=== PATIENT | female | born 1950 | race Caucasian/White ===

== ENCOUNTER 2018-10-15 19:30 | Outpatient (CLI) | payer MEDICARE | END 2018-10-15 19:31 | disposition home or self-care (01) | LOC: SLEEPLAB 19:30 | PROVIDERS: ATTEND Internal Medicine Critical Care Medicine | DX: G47.33 Obstructive sleep apnea (adult) (pediatric) (principal); R53.83 Other fatigue; R09.89 Other specified symptoms and signs involving the circulatory and respiratory systems; G47.10 Hypersomnia, unspecified; R06.83 Snoring; I10 Essential (primary) hypertension; G47.00 Insomnia, unspecified; E11.9 Type 2 diabetes mellitus without complications; F32.9 Major depressive disorder, single episode, unspecified; E66.9 Obesity, unspecified; Z68.41 Body mass index [BMI] 40.0-44.9, adult | CPT/HCPCS: 95810 ==

== ENCOUNTER 2018-10-22 19:30 | Outpatient (CLI) | payer MEDICARE | END 2018-10-22 19:31 | disposition home or self-care (01) | LOC: SLEEPLAB 19:30 | PROVIDERS: ATTEND Internal Medicine Critical Care Medicine | DX: G47.33 Obstructive sleep apnea (adult) (pediatric) (principal); R53.83 Other fatigue; G47.61 Periodic limb movement disorder; E66.9 Obesity, unspecified; Z68.41 Body mass index [BMI] 40.0-44.9, adult | CPT/HCPCS: 95811 ==

== ENCOUNTER 2019-02-17 13:58 | Outpatient (CLI) | payer MEDICARE ==
--- NOTE | 2019-02-17 15:48 | BD ---
Exam: DEXA Bone Density 01/17/19 HISTORY: Postmenopausal screening. COMPARISON: 04/11/16. Lumbar Spine: BMD (g/cm2) T-SCORE L1 1.011 +0.2 L2 0.923 -1.0 L3 0.973 -1.0 L4 0.871 -1.7 L1-L4 0.940 -1.0 Within normal limits with no increased risk for fracture. Bone mineral density is slightly improved from the prior study at which time T-Score was -1.3. Left Femoral Neck: 0.710 -1.2 Total Femur: 1.062 +1.0 Evidence for osteopenia with increased risk for fracture. Femoral neck bone density has slightly decreased when compared to the prior study, prior T-Score of t he femoral neck was -1.0. FRAX Score: Major osteoporotic fracture of 13%. Hip fracture: 1.4%. POS: [facility]
--- NOTE | 2019-02-18 08:40 | MMO ---
Bilateral MAMMO Bilat Screen [facility]. CLINICAL HISTORY: Patient is 68 years old and is seen for screening. The patient has no family history of breast cancer. The patient has no personal history of cancer. VIEWS: The views performed were: bilateral craniocaudal with tomosynthesis and bilateral mediolateral oblique with tomosynthesis. FILMS COMPARED: The present examination has been compared to prior imaging studies performed at [facility] on 09/28/2013, 04/11/2016 and 01/12/2018. MAMMOGRAM FINDINGS: There are scattered fibroglandular densities. There are stable benign appearing calcifications seen in both breasts. There are no suspicious masses, suspicious calcifications, or new areas of architectural distortion. IMPRESSION: THERE IS NO MAMMOGRAPHIC EVIDENCE OF MALIGNANCY. A ROUTINE FOLLOW-UP MAMMOGRAM IN 1 YEAR IS RECOMMENDED. THE RESULTS OF THIS EXAM WERE SENT TO THE PATIENT. ACR BI-RADS Category 2 - Benign finding MAMMOGRAPHY NOTE: 1. A negative mammogram report should not delay a biopsy if a dominant of clinically suspicious mass is present. 2. Approximately 10% to 15% of breast cancers are not detected by mammography. 3. Adenosis and dense breasts may obscure an underlying neoplasm.
== END 2019-02-17 13:59 | disposition home or self-care (01) ==
LOC: BICMAMMO 13:58
PROVIDERS: ATTEND Internal Medicine
DX: Z12.31 Encounter for screening mammogram for malignant neoplasm of breast (principal); Z13.820 Encounter for screening for osteoporosis; Z78.0 Asymptomatic menopausal state; M85.89 Other specified disorders of bone density and structure, multiple sites
CPT/HCPCS: 77063; 77067; 77080

== ENCOUNTER 2019-02-23 06:34 | Outpatient (CLI) | payer MEDICARE ==
--- NOTE | 2019-02-23 08:32 | CT ---
CT Abdomen Pelvis W Con HISTORY: Upper abdominal pain and bloating history of cholecystectomy. COMPARISON: The lung bases are clear. There are diffuse fatty changes of the liver which measures 23.9 cm in length. Spleen is enlarged at 16 cm. The pancreas region is unremarkable. The gallbladder has been removed. Right and left adrenal glands and right and left kidneys are normal in size. There is no significant periaortic adenopathy. There are some scattered nonspecific mesenteric nodes. CT of pelvis performed with contrast enhancement: The appendix is normal. There is no adenopathy, mas s or free fluid. Review of osseous structures show arthritic changes of the spine. FINDINGS: Fatty changes of liver with hepatosplenomegaly. IMPRESSION:
== END 2019-02-23 06:35 | disposition home or self-care (01) ==
LOC: BICCT 06:34
PROVIDERS: ATTEND Internal Medicine
DX: R10.10 Upper abdominal pain, unspecified (principal); R14.0 Abdominal distension (gaseous); K76.0 Fatty (change of) liver, not elsewhere classified; R16.2 Hepatomegaly with splenomegaly, not elsewhere classified
CPT/HCPCS: 74177

== ENCOUNTER 2019-03-10 10:28 | Day surgery (SDC) | payer MEDICARE ==
[2019-03-09 12:08] VITALS: BMI 42.0
[2019-03-10] MEDS ORDERED: Promethazine HCl 25 MG/ML VIAL ONE (14:21)
--- NOTE | 2019-03-10 14:54 | OP ---
DATE OF PROCEDURE: 03/10/2019 PROCEDURE PERFORMED: Esophagogastroduodenoscopy with biopsy. PREPROCEDURE DIAGNOSES: 1. Epigastric pain. 2. Possible upper GI bleed. 3. Early satiety. POSTPROCEDURE DIAGNOSES: 1. Exam to second portion of duodenum. 2. Grade A/B distal esophagitis, biopsied. 3. Multiple proximal body and fundus polyps, biopsied. 4. 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 5. No duodenal or gastric ulcer seen. 6. Otherwise normal esophagogastroduodenoscopy. PROCEDURE IN DETAIL: Written informed consent was obtained. The patient was brought to the endoscopy suite. Total intravenous anesthesia was administered by Dr. Marie and associates. The patient was placed in the left lateral decubitus position. A bite block was inserted into the mouth. A Pentax video diagnostic gastroscope was introduced into the oral cavity and the esophagus was carefully intubated. The endoscope was advanced under direct visualization to the second portion of the duodenum. Due to coughing and desaturation during the procedure, it was decided by Anesthesia to intubate the patient to maintain airway protection. This was performed by Dr. Marie, and the upper endoscopy examination was then resumed. Endoscopic findings showed small chronic erosions at the distal esophagus consistent with a grade A/B distal esophagitis. Biopsies were obtained for histology. There was no evidence of esophageal ulcer. The stomach was entered and carefully examined. This included a retroflex view of the cardia and fundus. Several small sessile polyps ranging in size from 3-mm to 8-mm were identified in the fundus and body. There was an estimated 15 to 20 polyps. Two of these polyps were removed and submitted to Pathology. No gastric ulcers were seen. The duodenum from the bulb to the second portion was then inspected. Several of the small sessile polypoid type lesions were noted in the proximal duodenal bulb. They were also biopsied. 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 The remainder of the exam of duodenum appeared normal. The stomach was decompressed as the endoscope was removed from the patient. She was then repositioned for the colonoscopy. RECOMMENDATIONS: 1. Await biopsy results. 2. Ask the patient to call me in 1 week for biopsy results. 3. Continue pantoprazole 40 mg daily as she has obtained some relief of her epigastric pain on the PPI therapy. 4. Follow up in GI office in 4 to 6 weeks. Job ID: [id number]
--- NOTE | 2019-03-10 15:11 | OP ---
DATE OF PROCEDURE: 03/10/2019 TITLE OF PROCEDURES: Colonoscopy with biopsy and polypectomy. PREPROCEDURE DIAGNOSES: 1. New onset diarrhea. 2. Diffuse abdominal pain. 3. Colon cancer screening. POSTPROCEDURE DIAGNOSES: 1. Exam to distal terminal ileum; good bowel preparation. 2. Mild diffuse diverticulosis coli. 3. Two small sigmoid polyps measuring 5 mm and 7 mm in diameter, removed by cold snare technique. 4. Two distal transverse colon polyps measuring 2 mm and 4 mm in diameter, removed by cold snare polypectomy. 5. Small internal hemorrhoids. 6. No obvious colitis, random biopsies obtained in the transverse colon for histology. 7. Otherwise normal colonoscopy. ANESTHESIA: General anesthesia as per Dr. Marie. PROCEDURE IN DETAIL: Written informed consent was obtained. Upon completion of the EGD, the patient was repositioned for the colonoscopy. A digital rectal exam was performed that was unremarkable. A Pentax videocolonoscope was inserted through the anal canal and advanced under direct visualization to the cecum. Position in the cecum was verified by identification of the ileocecal valve and a brief inspection of the distal terminal ileum. The quality of the bowel preparation was good. Each colon segment was examined carefully as the colonoscope was slowly withdrawn from the cecum. Vascular pattern and haustral folds appeared normal. The mucosa of the distal terminal ileum appeared grossly normal. Scattered diverticular orifices were noted throughout the colon, all the way to the cecum. There was no evidence of diverticulitis or diverticular hemorrhage. The severity of the diverticulosis was mild. The colonic mucosa appeared grossly normal. There was no evidence of ulceration or friability. Random biopsies were obtained in the transverse colon for histology. In the distal transverse colon, two diminutive polyps measuring 2 mm and 4 mm respectively were identified and removed by cold snare technique. Each polyp was submitted to pathology. Two additional polyps were found in the sigmoid colon and removed by cold snare polypectomy. They measured 5 mm and 7 mm respectively. A retroflex exam in the rectum demonstrated small internal hemorrhoids that were not actively bleeding. The exam was otherwise normal. The colon was decompressed as the colonoscope was removed from the patient. She was transferred to the PACU for postprocedure monitoring. There were no immediate complications. RECOMMENDATIONS: 1. Await pathology results. 2. Ask the patient to call me in one week for pathology results. 3. Repeat colonoscopy in three years. 4. Take Imodium one to two pills p.o. b.i.d. p.r.n. diarrhea. 5. Follow up in the office in four to six weeks. Job ID: [id number]
== END 2019-03-10 16:10 | disposition home or self-care (01) ==
LOC: SDC 10:28
PROVIDERS: ATTEND Internal Medicine Gastroenterology
PROC: 0DBN8ZX Excision of Sigmoid Colon, Via Natural or Artificial Opening Endoscopic, Diagnostic (ICD-10-PCS; principal; 2019-03-10)
PROC: 0DBL8ZX Excision of Transverse Colon, Via Natural or Artificial Opening Endoscopic, Diagnostic (ICD-10-PCS; 2019-03-10)
PROC: 0DB98ZX Excision of Duodenum, Via Natural or Artificial Opening Endoscopic, Diagnostic (ICD-10-PCS; 2019-03-10)
PROC: 0DB68ZX Excision of Stomach, Via Natural or Artificial Opening Endoscopic, Diagnostic (ICD-10-PCS; 2019-03-10)
PROC: 0DB58ZX Excision of Esophagus, Via Natural or Artificial Opening Endoscopic, Diagnostic (ICD-10-PCS; 2019-03-10)
DX: D12.5 Benign neoplasm of sigmoid colon (principal); K63.5 Polyp of colon; K57.30 Diverticulosis of large intestine without perforation or abscess without bleeding; K64.8 Other hemorrhoids; K31.7 Polyp of stomach and duodenum; K92.1 Melena; K31.89 Other diseases of stomach and duodenum; R19.7 Diarrhea, unspecified; K21.0 Gastro-esophageal reflux disease with esophagitis; E11.9 Type 2 diabetes mellitus without complications; F32.9 Major depressive disorder, single episode, unspecified; Z79.84 Long term (current) use of oral hypoglycemic drugs; Z79.899 Other long term (current) drug therapy; Z88.0 Allergy status to penicillin; Z88.2 Allergy status to sulfonamides
CPT/HCPCS: 88305; 88312; 88313; J2550

== ENCOUNTER 2019-09-24 08:03 | Observation (INO) | payer MEDICARE ==
--- NOTE | 2019-09-24 09:09 | RAD ---
EXAM: Single view of the chest HISTORY: Shortness of breath COMPARISON: None FINDINGS: Single view of the chest shows an enlarged cardiomediastinal silhouette. There is no eviden ce of consolidation, mass, or pleural effusion. Degenerative changes are seen in the spine. IMPRESSION: Cardiomegaly without evidence of acute cardiopulmonary disease
[2019-09-24 10:11] LABS: #Eosinphils 0.1 thou/uL (0.0-0.7); #Lymphocytes 0.7 thou/uL (1.20-3.40); #Monocytes 0.3 thou/uL (0.11-0.59); #Neutrophils 2.4 thou/uL (1.40-6.50); %Basophils 0.1 % (0.0-1.0); %Eosinophils 3.5 % (0.0-10.0); %Monocytes 7.8 % (0.0-10.0); %Neutrophils 69.6 % (42.0-75.0); Hemoglobin 13.1 g/dL (12.0-16.0); Mean Corpuscular HGB CONC 34.3 g/dL (32.0-36.0); Mean Corpuscular Hemoglobin 27.5 pg (27.0-31.0); Mean Corpuscular Volume 80.3 fL (78.0-98.0); RBC Distribution Width 14.4 % (11.5-14.5); Red Blood Cell (RBC) Count 4.77 mill/uL (4.20-5.40); White Blood Cell (WBC) Count 3.5 thou/uL (4.8-10.8)
[2019-09-24 10:28] LABS: ALT (SGPT) 16 U/L (8-55); AST (SGOT) 17 U/L (5-34); Alkaline Phosphatase 95 U/L (40-110); Anion Gap 13 mmol/L (10-20); BUN (Urea Nitrogen) 19 mg/dL (9.8-20.1); Bilirubin, Total 0.6 mg/dL (0.2-1.2); Calc. Creatinine Clearance 0 mL/min (70-130); Calcium 9.5 mg/dL (7.8-10.44); Carbon Dioxide 29 mmol/L (23-31); Chloride 99 mmol/L (98-107); Estimated GFR-MDRD 68; Globulin 2.6 g/dL (2.4-3.5); Glucose 272 mg/dL (80-115); Potassium 4.3 mmol/L (3.5-5.1); Protein, Total 6.6 g/dL (6.0-8.3); Sodium 137 mmol/L (136-145)
[2019-09-24 10:46] LABS: Platelet Count 87 thou/uL (130-400); Platelet Morphology Comment Appears Decreased
[2019-09-24 11:40] LABS: Bilirubin Negative (Negative); Blood, Urine Negative (Negative); Clarity Clear (Clear); Glucose, Urine (Dipstick) 200 mg/dL (Negative); Leukocyte Negative Leu/uL (Negative); Nitrite Negative (Negative); Protein, Urine (Dipstick) 10 mg/dL (Neg-Trace); Urobilinogen Normal mg/dL (Less than 2)
[2019-09-24] MEDS ORDERED: Furosemide 20 MG/2 ML VIAL ONE (12:15)
[2019-09-24 13:36] LABS: Troponin I Less than 0.010 ng/mL (< 0.028)
[2019-09-24 15:24] VITALS: BMI 44.1
[2019-09-24] MEDS ORDERED: Acetaminophen 325 MG TAB PO PRN (16:05)
[2019-09-24] MEDS ORDERED: Ondansetron ODT 4 MG TAB PO PRN (16:05)
[2019-09-24 16:08] LABS: Troponin I Less than 0.010 ng/mL (< 0.028)
[2019-09-24] MEDS ORDERED: hydrALAZINE 20 MG/ML VIAL SLOW IVP PRN (16:38)
[2019-09-24 16:45] LABS: Hemoglobin A1c 7.8 % (4.0-6.0)
[2019-09-24] MEDS: Metoprolol Tartrate 50 MG TAB PO SCH (17:54)
--- NOTE | 2019-09-24 20:42 | ULT ---
EXAM: Right lower extremity venous Doppler HISTORY: Right lower extremity swelling and pain. FINDINGS: Grayscale, color-flow, Doppler evaluation, spectral analysis of the right lower extremity venous stru ctures is performed with 2-D imaging. The right common femoral, superficial femoral, popliteal, posterior tibial, proximal greater saphenous and profunda femoral veins are imaged. There is normal luminal compressibility, flow, and augmentation in the visualized deep venous structu res of the right lower extremity. IMPRESSION: No evidence of a deep vein thrombosis in the visualized deep venous structures right lower extremity.
[2019-09-24] MEDS: Lisinopril/Hydrochlorothiazide 20 mg/12.5 mg Tablet PO SCH (21:26)
[2019-09-24] MEDS: metFORMIN 500 MG TAB PO SCH (21:27)
--- NOTE | 2019-09-24 22:17 | HP ---
CHIEF COMPLAINT: Dizziness and right lower extremity swelling. HISTORY OF PRESENT ILLNESS: A 69-year-old obese female with history of type 2 diabetes mellitus; hypertension; hyperlipidemia; oxygen dependent, respiratory failure; as well as obesity and obstructive sleep apnea, on CPAP; presenting with presyncopal episode. This morning, when she woke up, she noticed her right foot is more swollen than the left foot. She was nauseated. She had some blurriness, but no headache. She did not have fever. She felt not at her baseline which prompted her to come to the hospital. She also felt quite dizzy. She also felt that she has some presyncopal prodrome like lightheadedness, double vision, but denied any LOC. She never had any syncopal episode. She also noticed her urine is little darker. Also elevated blood pressure with systolic around 220 associated with lightheadedness. She [facility] roughly 2 weeks ago for bronchitis. REVIEW OF SYSTEMS: 13-point review of systems reviewed with the patient. Patient denies any recent fever, night sweats, chills. No headache. No chest pain. No orthopnea, PND, or lower extremity edema other than high blood pressure. No productive cough, wheezing. No nausea, vomiting, abdominal pain, constipation, diarrhea, hematuria, or dysuria. Denies any abdominal pain and flank pain. She does have inability to void frequently. Denies any rash. PAST MEDICAL HISTORY: Hypertension, type 2 diabetes mellitus. PAST SURGICAL HISTORY: Cholecystectomy and tonsillectomy. SOCIAL HISTORY: The patient does not smoke or drink alcohol. She lives with her spouse. FAMILY HISTORY: Father had glaucoma and cataract and he when he was 90-year-old. Mother had mitral valve prolapse. ALLERGIES: SHE IS ALLERGIC TO PENICILLIN. PHYSICAL EXAMINATION: VITAL SIGNS: Her current blood pressure is 182/107, pulse 86, oxygen saturation 99% on room air, temperature 98.6. GENERAL: The patient is alert, oriented, well developed, well nourished, obese female, not in any acute distress. She is very pleasant, conversational. HEENT: Pupils are equal, round, and reactive to light. Anicteric. Mucous membranes moist. CARDIOVASCULAR: Regular rate and rhythm without murmurs, rubs, or gallops. LUNGS: Clear to auscultation bilaterally without wheezing, rales, or rhonchi. ABDOMEN: Soft, nontender, nondistended. Good bowel sounds. EXTREMITIES: She has pitting edema most notable on her ankle and feet. Right is more swollen than the left. I did not appreciate any warmth, tenderness, or erythema in her right leg. PSYCHIATRIC: Appropriate mood and affect. NEUROLOGIC: No focal deficits. LABORATORY DATA: EKG showed normal sinus rhythm with a rate of 81 beats per minute. Chest x-ray showed cardiomegaly without any acute cardiopulmonary disease. No pleural effusion. No consolidation. WBC 3.5, platelets 87, hemoglobin 13. CMP panel in the normal range except blood glucose of 272. BNP 163. IMPRESSION AND PLAN: 69-year-old female with history of type 2 diabetes mellitus, hypertension, presented with the following. 1. Hypertensive urgency. 2. worsening LE edema 3. Presyncope. 4. Type 2 diabetes mellitus. 5. Glucosuria without any sign of urinary tract infection. 6. Cardiomegaly. 7. Obesity hyperventilation syndrome, on CPAP. The patient is admitted in the telemetry monitoring. Aggressive blood pressure control. We will get orthostatic vitals as well as patient felt quite dizzy this morning, which could be d/t elevated BP. Check TSH as well as 2D echo to assess the cardiac structure and functionality. Type 2 diabetes mellitus, continue with glimepiride as well as metformin. Diabetic diet. Follow up with A1c. Glucosuria. Again, patient needs better control of her diabetes. We will check A1c and try to adjust her home regimen, based on a1c. Leukopenia and thrombocytopenia. The [facility] Initial evaluation based on the small report that patient carries; it appears that she does not have any hematological malignancy. Continue to follow up with Cancer Center. Follow up with ultrasound of the right lower extremity to rule out the DVT, though it is a low threshold. it appears that the patient had LH cath in 05/2019 and negative for significant stenosis and EF of 65%--this information obtained after dictation. code status discussed -- full code, spouse DESIREE. Job ID: [id number] MTDD
[2019-09-25 05:16] LABS: #Eosinphils 0.2 thou/uL (0.0-0.7); #Lymphocytes 0.9 thou/uL (1.20-3.40); #Monocytes 0.3 thou/uL (0.11-0.59); #Neutrophils 2.7 thou/uL (1.40-6.50); %Basophils 0.1 % (0.0-1.0); %Eosinophils 4.3 % (0.0-10.0); %Lymphocytes 22.5 % (21.0-51.0); %Monocytes 6.7 % (0.0-10.0); %Neutrophils 66.5 % (42.0-75.0); Hemoglobin 13.5 g/dL (12.0-16.0); Mean Corpuscular HGB CONC 33.6 g/dL (32.0-36.0); Mean Corpuscular Hemoglobin 27.3 pg (27.0-31.0); Mean Corpuscular Volume 81.4 fL (78.0-98.0); Mean Platelet Volume 8.3 fL (7.4-10.4); Platelet Count 94 thou/uL (130-400); RBC Distribution Width 14.5 % (11.5-14.5); Red Blood Cell (RBC) Count 4.93 mill/uL (4.20-5.40); White Blood Cell (WBC) Count 4.1 thou/uL (4.8-10.8)
[2019-09-25] MEDS: Glimepiride 2 MG TAB PO SCH (08:34)
[2019-09-25] MEDS: Lisinopril/Hydrochlorothiazide 20 mg/12.5 mg Tablet PO SCH ×2 (08:35→20:12)
[2019-09-25] MEDS: metFORMIN 500 MG TAB PO SCH ×2 (08:35→20:11)
[2019-09-25] MEDS: Metoprolol Tartrate 50 MG TAB PO SCH ×2 (08:35→18:09)
[2019-09-25] MEDS ORDERED: Amlodipine 10 MG TAB PO SCH ×3 (09:00→12:30)
--- NOTE | 2019-09-25 14:28 | PDOC.HOSPP ---
- Subjective Subjective: pt doing well, her LE edema improved. echo pending. neg dvt. BP still high. - Objective Vital Signs & Weight: Vital Signs (12 hours) Temp Pulse Resp BP BP BP BP 09/25/19 13:49 77 09/25/19 11:08 98.8 F 77 18 169/72 H 09/25/19 08:35 77 153/77 H 09/25/19 07:38 98.4 F 77 16 176/72 H 155/68 H 153/72 H 09/25/19 04:30 98.9 F 70 16 160/72 H Pulse Ox 09/25/19 13:49 09/25/19 11:08 96 09/25/19 08:35 09/25/19 07:38 93 L 09/25/19 04:30 93 L Weight Weight 236 lb I&O: 09/24/19 09/25/19 09/26/19 06:59 06:59 06:59 Intake Total 240 Output Total 900 Balance -660 Result Diagrams: 09/25/19 04:56 09/24/19 09:51 Additional Labs: Accuchecks 09/25/19 09/25/19 09/24/19 11:15 05:38 20:59 POC Glucose 276 H 203 H 145 H Hospitalist ROS - Medication Medications: Active Medications Generic Name Dose Route Start Last Admin Trade Name Eitan PRN Reason Stop Dose Admin Glimepiride 2 mg 09/25/19 07:30 09/25/19 08:34 Amaryl PO 2 mg DAILY-AC AGUEDA Administration Lisinopril/HCTZ 1 tab 09/24/19 21:00 09/25/19 08:35 Prinizide 20-12.5 PO 1 tab BID AGUEDA Administration Metformin HCl 1,000 mg 09/24/19 21:00 09/25/19 08:35 Glucophage PO 1,000 mg BID AGUEDA Administration Metoprolol Tartrate 100 mg 09/24/19 17:00 09/25/19 08:35 Lopressor PO 100 mg BID-WM AGUEDA Administration Pantoprazole Sodium 40 mg 09/25/19 09:00 09/25/19 08:35 Protonix PO 40 mg DAILY AGUEDA Administration Sertraline HCl 100 mg 09/25/19 09:00 09/25/19 08:35 Zoloft PO 100 mg DAILY AGUEDA Administration - Exam General Appearance: NAD, awake alert, ill appearing Eye: PERRL, anicteric sclera, scleral icterus ENT: normocephalic atraumatic Neck: symmetric Heart: RRR, no murmur Respiratory: CTAB Gastrointestinal: soft, non-distended, normal bowel sounds Extremities - other findings: mild chr stasis, r. foot edema improved Hosp A/P - Plan old records reviewed/req Presyncope -ortho +ve -givent eh edematic nature, refrain from aggressive hydration -po intake enough -will repeat ortho this evening. talk to RN -pt had LH cath in 05/19 --nl and ef of 65% LE edema -neg dvt -poss contribution w.. norvasc -as her BP not controlled with home regimen, will dc norvasc and started on hydralazine. HTN urgency -resumed home meds -and started on hydralazine, off norvasc DM2 -home regimen Thrombocytopenia and anemia -cw outpt fw. Poss dc in am.
[2019-09-25] MEDS: hydrALAZINE 25 MG TAB PO SCH ×2 (14:57→20:12)
[2019-09-26 08:39] VITALS: BP 139/65; TEMP 98.3
[2019-09-26] MEDS ORDERED: Amlodipine 10 MG TAB PO SCH ×2 (09:00)
[2019-09-26] MEDS: metFORMIN 500 MG TAB PO SCH (09:09)
[2019-09-26] MEDS: Metoprolol Tartrate 50 MG TAB PO SCH (09:09)
[2019-09-26] MEDS: hydrALAZINE 25 MG TAB PO SCH (09:10)
[2019-09-26] MEDS: Glimepiride 2 MG TAB PO SCH (09:10)
[2019-09-26] MEDS: Lisinopril/Hydrochlorothiazide 20 mg/12.5 mg Tablet PO SCH (09:10)
--- NOTE | 2019-09-27 03:19 | DIS ---
DATE OF ADMISSION: 09/24/2019 DATE OF DISCHARGE: 09/26/2019 DISCHARGE DIAGNOSES: 1. Presyncope. 2. Lower extremity edema. 3. Hypertensive urgency. 4. Type 2 diabetes mellitus. 5. Thrombocytopenia and anemia and following with cancer center. DISCHARGE MEDICATIONS: 1. Hydralazine 50 mg twice a day. 2. Glimepiride 2 mg daily. 3. Lisinopril/hydrochlorothiazide 20/12.5 mg twice a day. 4. Metformin 500 mg twice a day. 5. Lopressor 100 mg twice a day. 6. Pantoprazole 40 mg daily. 7. Sertraline 100 mg daily. PHYSICAL EXAMINATION: VITAL SIGNS: On the day of discharge, the patient is afebrile with a temp of 98.7, pulse 95, and blood pressure 126/64. Her orthostatic vitals were negative this morning. GENERAL: The patient is alert, oriented, and she is resting comfortably in no acute distress. Discharge plan discussed with her, and she is agreeable for today going home. Alert, oriented, non-toxic looking. CARDIOVASCULAR: Regular rate and rhythm without murmurs, rubs, or gallops. LUNGS: Clear to auscultation bilaterally without wheezing, rales, or rhonchi. ABDOMEN: Soft, nontender, nondistended. Good bowel sounds. EXTREMITIES: Without any pitting edema. HOSPITAL COURSE: This is a 69-year-old female, admitted with a presyncopal episode. She also had a lower extremity edema, right foot more swollen than the left. Her echo showed mild left ventricular hypertrophy and EF of 55%. She also had a cath recently in May 2019, which showed only atherosclerosis without significant obstruction and EF at that time was 65%. Negative for DVT. She is on Norvasc 5 mg twice a day, and her blood pressure was not optimized. She presented to the ER with hypertensive urgency. She was started on hydralazine and seems to be responding well. Norvasc may be contributing to her lower extremity edema, so that has been discontinued and hydralazine has been started. ACTIVITY: As tolerated. DIET: Diabetic diet. FOLLOWUP: Follow up with primary care physician within a week as patient is on a new blood pressure medication. TIME SPENT: Discharge time took over 30 minutes. Job ID: [id number] [facility]
== END 2019-09-26 12:54 | disposition home or self-care (01) ==
LOC: ERS 08:03 → 2SW 12:26
PROVIDERS: ADMIT Internal Medicine; ATTEND Internal Medicine
DX: R55 Syncope and collapse (principal); M79.89 Other specified soft tissue disorders; I16.0 Hypertensive urgency; I11.9 Hypertensive heart disease without heart failure; E11.9 Type 2 diabetes mellitus without complications; D64.9 Anemia, unspecified; D69.6 Thrombocytopenia, unspecified; E78.5 Hyperlipidemia, unspecified; J96.90 Respiratory failure, unspecified, unspecified whether with hypoxia or hypercapnia; E66.2 Morbid (severe) obesity with alveolar hypoventilation; Z68.41 Body mass index [BMI] 40.0-44.9, adult; Z79.84 Long term (current) use of oral hypoglycemic drugs; Z79.899 Other long term (current) drug therapy; Z88.0 Allergy status to penicillin; Z88.2 Allergy status to sulfonamides; Z99.81 Dependence on supplemental oxygen; Z99.89 Dependence on other enabling machines and devices
CPT/HCPCS: 36415; 36416; 71045; 80053; 81003; 83036; 83880; 84443; 84484; 85025; 87086; 93005; 93306; 96374; G0378; J1940

== ENCOUNTER 2019-09-30 07:11 | Outpatient (CLI) | payer MEDICARE ==
--- NOTE | 2019-09-30 08:21 | ULT ---
ULTRASOUND ABDOMEN COMPLETE: DATE: 09/30/2019. HISTORY: Thrombocytopenia in a 69-year-old female. TECHNIQUE: Bain-scale ultrasound evaluation of the liver, gallbladder, spleen, pancreas, common bile duct, kidne ys, abdominal aorta, and inferior vena cava (IVC). FINDINGS: Liver: Enlarged. Diffusely increased echogenicity consistent with fatty liver. Gallbladder: Surgically absent. Common duct: 7 mm. Bilateral kidneys: No hydronephrosis. Right kidney poorly visualized. A small 1.5 cm left renal mid-upper pole simple parenchymal cyst. Spleen: 19 x 6.5 x 6.5 cm. Pancreas: Nonspecific sonographic appearance. Abdominal aorta: Mostly obscured by shadowing from bowel gas. IVC: Poorly visualized. Free fluid: None visualized in upper abdomen. IMPRESSION: 1. Hepatic steatosis and hepatomegaly. 2. Splenomegaly. 3. Status post cholecystectomy. JN R POS: [facility]
== END 2019-09-30 07:12 | disposition home or self-care (01) ==
LOC: BICULT 07:11
PROVIDERS: ATTEND Internal Medicine Hematology & Oncology
DX: R16.2 Hepatomegaly with splenomegaly, not elsewhere classified (principal); D69.6 Thrombocytopenia, unspecified; K76.0 Fatty (change of) liver, not elsewhere classified; Z90.49 Acquired absence of other specified parts of digestive tract
CPT/HCPCS: 93975

== ENCOUNTER 2020-01-19 20:00 | Observation (INO) | payer MEDICARE ==
[2020-01-19 20:41] LABS: #Eosinphils 0.1 thou/uL (0.0-0.7); #Lymphocytes 0.7 thou/uL (1.20-3.40); #Monocytes 0.5 thou/uL (0.11-0.59); #Neutrophils 6.8 thou/uL (1.40-6.50); %Eosinophils 1.2 % (0.0-10.0); %Lymphocytes 8.7 % (21.0-51.0); %Monocytes 6.2 % (0.0-10.0); %Neutrophils 83.8 % (42.0-75.0); Hemoglobin 12.8 g/dL (12.0-16.0); Mean Corpuscular HGB CONC 32.2 g/dL (32.0-36.0); Mean Corpuscular Hemoglobin 26.1 pg (27.0-31.0); Mean Platelet Volume 8.1 fL (7.4-10.4); Platelet Count 139 thou/uL (130-400); RBC Distribution Width 14.5 % (11.5-14.5); Red Blood Cell (RBC) Count 4.89 mill/uL (4.20-5.40); White Blood Cell (WBC) Count 8.1 thou/uL (4.8-10.8)
--- NOTE | 2020-01-19 20:56 | RAD ---
Exam: Chest one view HISTORY:Shortness of breath. Sent heart failure. Comparison: 09/24/2019, 01/05/2020 FINDINGS: Cardiac silhouette:Cardiomegaly Aorta: Unremarkable Pulmonary vessels: Normal Costophrenic angles: Clear LUNGS: No masses or consolidation. Chronic lung parenchymal changes Pneumothorax: None Osseous abnormalities: None IMPRESSION: Cardiomegaly without evidence of congestive heart failure
[2020-01-19 21:02] LABS: ALT (SGPT) 32 U/L (8-55); AST (SGOT) 26 U/L (5-34); Alkaline Phosphatase 76 U/L (40-110); Anion Gap 13 mmol/L (10-20); BUN (Urea Nitrogen) 14 mg/dL (9.8-20.1); Bilirubin, Total 0.9 mg/dL (0.2-1.2); Calc. Creatinine Clearance 0 mL/min (70-130); Carbon Dioxide 30 mmol/L (23-31); Chloride 100 mmol/L (98-107); Estimated GFR-MDRD 66; Globulin 2.9 g/dL (2.4-3.5); Glucose 125 mg/dL (80-115); Potassium 3.6 mmol/L (3.5-5.1); Protein, Total 6.9 g/dL (6.0-8.3); Sodium 139 mmol/L (136-145)
[2020-01-19] MEDS ORDERED: Furosemide 40 MG/4 ML VIAL ONE (21:32)
[2020-01-19 22:31] LABS: Bilirubin Negative (Negative); Blood, Urine Negative (Negative); Clarity Clear (Clear); Glucose, Urine (Dipstick) Normal (Negative); Leukocyte Negative Leu/uL (Negative); Nitrite Negative (Negative); Protein, Urine (Dipstick) 20 mg/dL (Neg-Trace); Urobilinogen Normal mg/dL (Less than 2)
[2020-01-19] MEDS ORDERED: Acetaminophen 325 MG TAB PO PRN (22:41)
[2020-01-19] MEDS ORDERED: Dextrose 50% Abboject 50 ML SYRINGE SLOW IVP PRN (22:51)
[2020-01-19] MEDS ORDERED: HumaLOG 300 UNITS/3 ML VIAL SC PRN ×2 (22:51)
[2020-01-19] MEDS ORDERED: Dextrose 5% in Water 1,000 ML IV PRN (22:51)
--- NOTE | 2020-01-19 23:41 | HP ---
TIME OF ASSESSMENT: 0900 PRIMARY CARE PHYSICIAN: Tressa Briones MD REASON FOR ADMISSION: CHF exacerbation. HISTORY OF PRESENT ILLNESS: Ms. Roger is a 69-year-old woman, who presents complaining of orthopnea with decreased appetite and difficulty sleeping for the last 3 days. The patient states the difficulty sleeping was due to the orthopnea. She states decreased appetite was due to spasming of her abdomen that she had been experiencing. Patient reports having frequent bowel movements daily, which has been longstanding for her. Due to abdominal discomfort, she had been set up to undergo CT imaging of the abdomen and pelvis and had been given a liquid to drink, but states she felt full too quickly, therefore, was not able to drink much of it. The patient states today her symptoms have suddenly improved. She is no longer feeling short of breath when lying down and has noted decreased swelling in both of her legs. Has also had complete improvement in her appetite and is eating as normal. She states the abdominal discomfort has not recurred since yesterday afternoon. States it suddenly eased on its own and the nausea that was associated with the discomfort has fully resolved. The patient attended an appointment with her primary care physician this morning and had laboratory studies done. She states she was told they were abnormal and showed signs of her being in heart failure. Therefore, was prompted to come to the emergency department. At present, she is without any complaints. EMERGENCY DEPARTMENT COURSE: In the emergency department, she underwent laboratory studies which showed white count 8.1, hemoglobin 12.8, hematocrit 39.6, platelets 139. CMP showed a potassium of 3.6, sodium 139, BUN 14, creatinine 0.85, GFR 66, and glucose 125. LFTs unremarkable. BNP elevated. She had a chest x-ray done which showed cardiomegaly without any evidence of congestive heart failure. Urinalysis was done as well which was normal. In the emergency department, she was given 40 mg of IV Lasix. Of note, patient was recently discharged from the hospital on 09/24/2019 after being treated with presyncope, hypertensive urgency, and lower extremity edema. The BNP at the time of discharge was 163.1. Of note, the patient underwent an echocardiogram during her admission on 09/25/2019, which showed an EF of 50% to 55% with mild concentric left ventricular hypertrophy. Her findings suggestive of diastolic dysfunction. The left atrium was noted to be moderately dilated and there was mild mitral regurgitation as well as mild tricuspid regurgitation present. PAST MEDICAL HISTORY: 1. Obesity. 2. Hypertension. 3. Type 2 diabetes mellitus. 4. Longstanding difficulty with urination. 5. Chronic frequent bowel movements. 6. Anxiety. 7. Depression. 8. Diastolic heart failure. PAST SURGICAL HISTORY: 1. Left elbow surgery. 2. Left knee surgery. 3. Right knee surgery. 4. Cholecystectomy. 5. Tonsillectomy. SOCIAL HISTORY: Patient lives with her . Denies any tobacco use, alcohol consumption, or illicit drug use. She mobilizes independently without the need of assistive devices. ALLERGIES: 1. PENICILLIN. 2. SULFA. CURRENT MEDICATIONS: 1. Lisinopril. 2. Glimepiride. 3. Metformin. 4. Metoprolol tartrate. 5. Sertraline. 6. Pantoprazole. 7. Hydralazine. 8. Clonidine. PHYSICAL EXAMINATION: GENERAL: Patient appears obese, well developed, in no acute distress, resting comfortably on the stretcher. VITAL SIGNS: Temperature 98.5, pulse 83, blood pressure 141/79, respirations 20 , and O2 saturation 95% on room air. HEENT: Normocephalic and atraumatic. Pupils are equal, round, and reactive to light. Sclerae icterus. Oropharynx is clear. NECK: Supple. No lymphadenopathy. LUNGS: Clear to auscultation bilaterally without any wheezes, rales, or rhonchi. CARDIAC: Regular rate and rhythm. ABDOMEN: Obese, soft. Mild discomfort in the center of the abdomen with deep palpation. No guarding or rigidity. No renal angle tenderness. EXTREMITIES: Notable for +2 pitting edema from her feet to just below the knees. Peripheral pulses strong and equal bilaterally. SKIN: Warm and dry. INVESTIGATIONS: As mentioned above in HPI. IMPRESSION AND PLAN: Ms. Roger is a 69-year-old woman, prompted by her primary care physician to come in due to elevated BNP in the 900s. Patient had been experiencing abdominal discomfort, orthopnea, and decreased appetite, all of which have nearly resolved today. She is being admitted for management of the following. 1. Congestive heart failure exacerbation. Consult placed for heart failure management. Patient will continue Lasix 20 mg IV twice daily. 2. Abdominal discomfort. Patient states she is scheduled to undergo CT imaging of the abdomen in the outpatient setting. We will continue to monitor. LFTs are unremarkable. Day Team to decide if imaging to be done during her hospitalization. Patient without any significant discomfort at this present time. 3. Hypertension. Monitor blood pressure. Resume home medications once verified. 4. Type 2 diabetes mellitus. Monitor her blood glucose. Initiate sliding scale. Reconcile home medication once verified. 5. Anxiety/depression. Reconcile home medications once verified. 6. Gastrointestinal prophylaxis. Famotidine 20 mg p.o. b.i.d. 7. Deep venous thrombosis prophylaxis. Patient is ambulatory. 8. Code status. Full. Surrogate decision maker is her , Luiz Roger. Case discussed with Dr. Orosco, who agrees upon the care as described above. Job ID: [id number] MTDD
[2020-01-20 00:15] VITALS: BMI 39.6
[2020-01-20 01:35] LABS: Troponin I 0.012 ng/mL (< 0.028)
[2020-01-20 05:04] LABS: Troponin I 0.017 ng/mL (< 0.028)
[2020-01-20 05:05] LABS: ALT (SGPT) 30 U/L (8-55); AST (SGOT) 26 U/L (5-34); Albumin 3.9 g/dL (3.4-4.8); Alkaline Phosphatase 79 U/L (40-110); Anion Gap 13 mmol/L (10-20); BUN (Urea Nitrogen) 15 mg/dL (9.8-20.1); Bilirubin, Total 0.8 mg/dL (0.2-1.2); Calc. Creatinine Clearance 98 mL/min (70-130); Calcium 9.1 mg/dL (7.8-10.44); Carbon Dioxide 31 mmol/L (23-31); Chloride 99 mmol/L (98-107); Estimated GFR-MDRD 65; Globulin 2.9 g/dL (2.4-3.5); Glucose 148 mg/dL (80-115); Magnesium 1.9 mg/dL (1.6-2.6); Potassium 3.3 mmol/L (3.5-5.1); Protein, Total 6.8 g/dL (6.0-8.3); Sodium 140 mmol/L (136-145)
[2020-01-20] MEDS: Furosemide 20 MG/2 ML VIAL SLOW IVP SCH ×2 (05:21→13:16)
[2020-01-20 08:37] VITALS: TEMP 98.2
[2020-01-20] MEDS ORDERED: Famotidine 20 MG TAB PO SCH (09:00)
[2020-01-20] MEDS ORDERED: cloNIDine 0.1 MG TAB PO PRN (09:47)
[2020-01-20] MEDS ORDERED: Lisinopril/Hydrochlorothiazide 20 mg/12.5 mg Tablet PO SCH ×2 (12:45→21:00)
[2020-01-20] MEDS ORDERED: Metoprolol Tartrate 100 MG TAB PO SCH ×2 (12:45→17:00)
[2020-01-20] MEDS ORDERED: hydrALAZINE 25 MG TAB PO SCH (15:00)
[2020-01-20 16:23] VITALS: BP 163/72
[2020-01-20] MEDS ORDERED: metFORMIN 500 MG TAB PO SCH (17:00)
--- NOTE | 2020-01-21 01:35 | DIS ---
DATE OF ADMISSION: 01/19/2020 DATE OF DISCHARGE: 01/20/2020 DISCHARGE DIAGNOSES: 1. Acute on chronic diastolic heart failure. 2. Obesity. 3. Hypertension. 4. Hyperlipidemia. 5. Anxiety and depression. HOSPITAL COURSE: The patient is a pleasant 69-year-old, who initially presented to the hospital with complaints of shortness of breath, orthopnea, and abdominal swelling. The patient at this time was seen in the ER. All the labs are normal except for mildly elevated BNP of 939. At this time, she was admitted to the hospital for further evaluation. The patient's chest x-ray indicated cardiomegaly without any evidence of heart failure. The patient at this time was found to also be hypertensive in the ER. Blood pressures were significantly elevated. The patient was given IV diuretics. Blood pressure medications were continued. She was educated significantly on low-fat diet and low-sodium diet. She has been eating canned foods and she has been eating frozen meals. Also, dietitian has seen this patient. Portion control also was discussed with this patient. She will be discharged home. She will follow up with her primary. MEDICATIONS: The only medication I have added is p.r.n. Lasix as needed. She is going to be on glimepiride 2 mg before meals, lisinopril and hydrochlorothiazide 1 p.o. b.i.d., metoprolol 100 mg b.i.d., pantoprazole 40 mg daily, sertraline 100 mg daily, clonidine 0.1 b.i.d. p.r.n., hydralazine 100 mg t.i.d., and metformin 2 tabs p.o. b.i.d. PHYSICAL EXAMINATION: VITAL SIGNS: Temperature of 98.2, heart rate 85, blood pressure 155/76, sats 95% on room air. GENERAL: She is awake, alert, and oriented x3. Does not appear in distress. CV: S1, S2 present. No murmurs, rubs, or gallops. She will be discharged home, to follow up with her primary. Job ID: [id number]
[2020-01-21] MEDS ORDERED: Glimepiride 1 MG TAB PO SCH (07:30)
== END 2020-01-20 18:00 | disposition home or self-care (01) ==
LOC: ERS 20:00 → 2NO 22:15
PROVIDERS: ADMIT Internal Medicine; ATTEND Internal Medicine
DX: I11.0 Hypertensive heart disease with heart failure (principal); I50.33 Acute on chronic diastolic (congestive) heart failure; R10.9 Unspecified abdominal pain; E11.9 Type 2 diabetes mellitus without complications; F41.9 Anxiety disorder, unspecified; F32.9 Major depressive disorder, single episode, unspecified; E78.5 Hyperlipidemia, unspecified; E66.9 Obesity, unspecified; Z68.39 Body mass index [BMI] 39.0-39.9, adult; Z91.5 Personal history of self-harm; Z79.84 Long term (current) use of oral hypoglycemic drugs; Z79.899 Other long term (current) drug therapy; Z88.0 Allergy status to penicillin; Z88.2 Allergy status to sulfonamides
CPT/HCPCS: 71045; 74177; 80053 ×3; 82962; 83690; 83735; 83880; 84443; 84484 ×3; 85025 ×2; 87086; 93005; 96374; 96376; 97139; 99285; G0378 ×2; 36415; 36416; 81003; 81015; J1940

== ENCOUNTER 2020-02-02 14:38 | Outpatient (CLI) | payer MEDICARE | END 2020-02-02 14:39 | disposition home or self-care (01) | LOC: CTENTCT 14:38 | PROVIDERS: ATTEND Otolaryngology Plastic Surgery within the Head & Neck | DX: J34.2 Deviated nasal septum (principal) | CPT/HCPCS: 70486 ==

== ENCOUNTER 2020-02-20 14:32 | Outpatient (CLI) | payer MEDICARE ==
--- NOTE | 2020-02-20 16:17 | MMO ---
Bilateral MAMMO Bilat Screen [facility]. CLINICAL HISTORY: Patient is 69 years old and is seen for screening. The patient has no family history of breast cancer. The patient has no personal history of cancer. VIEWS: The views performed were: bilateral craniocaudal with tomosynthesis and bilateral mediolateral oblique with tomosynthesis. FILMS COMPARED: The present examination has been compared to prior imaging studies performed at [facility] on 02/17/2019, and at [facility] on 09/28/2013, 04/11/2016 and 01/12/2018. This study has been interpreted with the assistance of computer-aided detection. MAMMOGRAM FINDINGS: There are scattered fibroglandular densities. Benign calcifications are noted bilaterally. There are no suspicious masses, suspicious calcifications, or new areas of architectural distortion. IMPRESSION: THERE IS NO MAMMOGRAPHIC EVIDENCE OF MALIGNANCY. A ROUTINE FOLLOW-UP MAMMOGRAM IN 1 YEAR IS RECOMMENDED. THE RESULTS OF THIS EXAM WERE SENT TO THE PATIENT. ACR BI-RADS Category 2 - Benign finding MAMMOGRAPHY NOTE: 1. A negative mammogram report should not delay a biopsy if a dominant of clinically suspicious mass is present. 2. Approximately 10% to 15% of breast cancers are not detected by mammography. 3. Adenosis and dense breasts may obscure an underlying neoplasm. Reported by: PHILIP HERNANDEZ MD Electonically Signed: [id number]
== END 2020-02-20 14:33 | disposition home or self-care (01) ==
LOC: BICMAMMO 14:32
PROVIDERS: ATTEND Internal Medicine
DX: Z12.31 Encounter for screening mammogram for malignant neoplasm of breast (principal)
CPT/HCPCS: 77063; 77067

== ENCOUNTER 2020-02-24 08:00 | Outpatient (CLI) | payer MEDICARE, OTHER ==
[2020-02-24 17:29] LABS: Hemoglobin 13.2 g/dL (12.0-16.0)
[2020-02-24 17:51] LABS: Anion Gap 17 mmol/L (10-20); BUN (Urea Nitrogen) 68 mg/dL (9.8-20.1); Calc. Creatinine Clearance 0 mL/min (70-130); Calcium 9.1 mg/dL (7.8-10.44); Carbon Dioxide 27 mmol/L (23-31); Chloride 99 mmol/L (98-107); Estimated GFR-MDRD 31; Glucose 110 mg/dL (80-115); Potassium 4.5 mmol/L (3.5-5.1); Sodium 138 mmol/L (136-145)
[2020-02-25 13:14] LABS: SARS-CoV-2 MS2 Positive; SARS-CoV-2 N Gene Negative; SARS-CoV-2 S Gene Negative; SARS-CoV-2 orf1ab Negative
== END 2020-02-24 08:01 | disposition home or self-care (01) ==
LOC: LABBT 08:00
PROVIDERS: ATTEND Otolaryngology Plastic Surgery within the Head & Neck
DX: Z01.812 Encounter for preprocedural laboratory examination (principal); Z11.59 Encounter for screening for other viral diseases; J34.2 Deviated nasal septum; J34.3 Hypertrophy of nasal turbinates; J34.89 Other specified disorders of nose and nasal sinuses; R06.5 Mouth breathing; J30.9 Allergic rhinitis, unspecified
CPT/HCPCS: 80048; 85014; 85018; U0003; 87635

== ENCOUNTER 2020-02-29 06:47 | Day surgery (SDC) | payer MEDICARE ==
[2020-02-23 13:35] VITALS: BMI 40.1
[2020-02-29] MEDS ORDERED: AFRIN NASAL MIST 15 ML BOT ONE ×2 (07:38→08:14)
[2020-02-29] MEDS ORDERED: Bacitracin Zinc Ointment 30 gm TUBE ONE (08:14)
[2020-02-29] MEDS ORDERED: Lidocaine 1% w/Epinephrine 1:100K 20 ML VIAL ONE (08:14)
[2020-02-29] MEDS ORDERED: Fentanyl 100 MCG/2 ML VIAL ONE (08:14)
[2020-02-29] MEDS ORDERED: hydrALAZINE 20 MG/ML VIAL ONE (09:15)
[2020-02-29] MEDS ORDERED: Ondansetron PF 4 MG/2 ML Vial ONE (09:56)
[2020-02-29] MEDS ORDERED: Labetalol HCl 100 MG/20 ML VIAL ONE (09:56)
[2020-02-29] MEDS ORDERED: PROPOFOL 200 MG/20 ML VIAL ONE (09:56)
[2020-02-29] MEDS ORDERED: Succinylcholine Chloride 20 MG/ML 10 ml SYRINGE FS ONE (09:56)
[2020-02-29] MEDS ORDERED: Lidocaine 1% PF 5 ML VIAL ONE (09:56)
[2020-02-29] MEDS ORDERED: Dexamethasone 20 MG/5 ML VIAL ONE (09:56)
--- NOTE | 2020-02-29 23:25 | OP ---
DATE OF PROCEDURE: 02/29/2020 PREOPERATIVE DIAGNOSES: 1. Chronic rhinosinusitis. 2. Nasal septal deviation. 3. Bilateral inferior turbinate hypertrophy. 4. Nasal obstruction. 5. Bilateral dynamic nasal valve collapse. POSTOPERATIVE DIAGNOSES: 1. Chronic rhinosinusitis. 2. Nasal septal deviation. 3. Bilateral inferior turbinate hypertrophy. 4. Nasal obstruction. 5. Bilateral dynamic nasal valve collapse. PROCEDURES PERFORMED: 1. Bilateral endoscopic sinus surgery, total ethmoidectomies. 2. Bilateral endoscopic sinus surgery, maxillary antrostomies. 3. Bilateral endoscopic sinus surgery, frontal sinusotomies. 4. Bilateral endoscopic sinus surgery, sphenoidotomies. 5. Nasal septoplasty. 6. Bilateral inferior turbinates submucosal resection. 7. Repair of bilateral nasal wall collapse. ESTIMATED BLOOD LOSS: 50 mL. COMPLICATIONS: None. ANESTHESIA: GETA. PROCEDURE IN DETAIL: Patient was taken to the operating room and placed supine on the table. General endotracheal anesthesia was obtained by the anesthesia staff. Then 1% lidocaine with 1:100,000 epinephrine was injected into the nasal septum as well as the inferior turbinates. The patient was prepped and draped in standard surgical fashion. The Afrin pledgets were then removed. A Almira incision was made on the left nasal septum. Submucoperichondrial dissection was performed bilaterally of the deviated portions of the septum, which included the maxillary crest and the crest deviation, as well as the mid portion of the septum. Cartilage and bony deviation were removed, leaving a generous caudal and dorsal strut. Any straight pieces of cartilage were then placed within the cartilage press, pressed, straightened, and then placed between the mucoperichondrial flaps, which were then closed using a 4-0 gut stitch. The inferior turbinates were then punctured with the submucosal Coblation machine, and 3 separate coblations were delivered to the anterior inferior portion of the inferior turbinates. Following this, the nasal cavity was irrigated. All debris was removed. An orogastric tube was placed. Gastric contents and Harris splints were then placed in the nasal cavity and sutured with a 3-0 silk stitch. Following this, 1% lidocaine with 1:100,000 epinephrine were injected into the middle turbinates and lateral nasal wall bilaterally. Following this, the 0-degree endoscope was used to visualize the middle turbinate and the middle turbinate was medially fractured using a [place] elevator. Following this, the uncinate process was identified and was examined. The uncinate process was noted to be inflamed and laterally displaced bilaterally. Following this, a ball-ended probe was used to anteriorly fracture the uncinate process bilaterally. Following this, the 0-degree microdebrider and the up-biting Blakesley forceps were used to remove the uncinate process bilaterally. Following this, the natural maxillary sinus ostia was identified with the 0-degree endoscope and the ball-ended probe. The natural maxillary ostia was then widened using a 40-degree microdebrider and the straight Blakesley forceps bilaterally. Following this, the ethmoidal bulla was identified bilaterally. A 0-degree microdebrider was used to puncture the ethmoidal bulla on its medial and inferior aspect bilaterally. Following this, the 0-degree microdebrider and the up-biting Blakesley forceps were used to remove the ethmoidal bulla. Following this, the grand lamella was identified posterior to this area and was punctured using the 0-degree microdebrider bilaterally. Following this, the ethmoidal cells were opened from the posterior to the anterior using the 0-degree microdebrider, the 40-degree microdebrider and the up-biting Blakesley forceps bilaterally. Following this, the 45-degree endoscope and the 40-degree microdebrider blade were used to further remove the anterior ethmoidal cells to the level of the frontal sinus recess bilaterally. Following that, the 0-degree endoscope was then advanced through the previous ethmoidectomies and the anterior wall of the sphenoid sinus was identified. The 0-degree microdebrider was used to create a puncture into the anterior wall of the sphenoid sinus bilaterally. The sphenoid sinus ostia was then widened in a medial and inferior direction using the 0-degree microdebrider bilaterally. Following this, a 40-degree microdebrider blade along with 45-degree endoscope was used to visualize the frontal sinus ostia bilaterally. The frontal sinus ostia was then widened using the 40-degree microdebrider and curved Blakesley forceps bilaterally. Following this, the nasal cavity was irrigated. Nasal pore packing was placed within the middle meatus. Harris splints were placed and secured. Following this, a small incision was made for a transcartilaginous approach to the lateral nasal wall and a graft was placed in an onlay fashion over the nasal bones repairing and providing structure to the collapsed nasal wall bilaterally. An incision was closed using a 5-0 chromic gut stitch. The patient tolerated the procedure well. Job ID: [id number]
== END 2020-02-29 11:00 | disposition home or self-care (01) ==
LOC: SDC 06:47
PROVIDERS: ATTEND Otolaryngology Plastic Surgery within the Head & Neck
PROC: 09TV8ZZ Resection of Left Ethmoid Sinus, Via Natural or Artificial Opening Endoscopic (ICD-10-PCS; principal; 2020-02-29)
PROC: 09TU8ZZ Resection of Right Ethmoid Sinus, Via Natural or Artificial Opening Endoscopic (ICD-10-PCS; 2020-02-29)
PROC: 099T8ZZ Drainage of Left Frontal Sinus, Via Natural or Artificial Opening Endoscopic (ICD-10-PCS; 2020-02-29)
PROC: 099W8ZZ Drainage of Right Sphenoid Sinus, Via Natural or Artificial Opening Endoscopic (ICD-10-PCS; 2020-02-29)
PROC: 099X8ZZ Drainage of Left Sphenoid Sinus, Via Natural or Artificial Opening Endoscopic (ICD-10-PCS; 2020-02-29)
PROC: 099Q8ZZ Drainage of Right Maxillary Sinus, Via Natural or Artificial Opening Endoscopic (ICD-10-PCS; 2020-02-29)
PROC: 099R8ZZ Drainage of Left Maxillary Sinus, Via Natural or Artificial Opening Endoscopic (ICD-10-PCS; 2020-02-29)
PROC: 099S8ZZ Drainage of Right Frontal Sinus, Via Natural or Artificial Opening Endoscopic (ICD-10-PCS; 2020-02-29)
PROC: 09SM0ZZ Reposition Nasal Septum, Open Approach (ICD-10-PCS; 2020-02-29)
PROC: 09TL0ZZ Resection of Nasal Turbinate, Open Approach (ICD-10-PCS; 2020-02-29)
PROC: 09QK0ZZ Repair Nasal Mucosa and Soft Tissue, Open Approach (ICD-10-PCS; 2020-02-29)
DX: J32.9 Chronic sinusitis, unspecified (principal); J34.2 Deviated nasal septum; J34.3 Hypertrophy of nasal turbinates; J34.89 Other specified disorders of nose and nasal sinuses; J30.9 Allergic rhinitis, unspecified; I11.0 Hypertensive heart disease with heart failure; I50.9 Heart failure, unspecified; F32.9 Major depressive disorder, single episode, unspecified; E11.9 Type 2 diabetes mellitus without complications; E78.1 Pure hyperglyceridemia; G47.33 Obstructive sleep apnea (adult) (pediatric); I25.10 Atherosclerotic heart disease of native coronary artery without angina pectoris; I25.2 Old myocardial infarction; E66.9 Obesity, unspecified; Z68.41 Body mass index [BMI] 40.0-44.9, adult; Z79.82 Long term (current) use of aspirin; Z79.84 Long term (current) use of oral hypoglycemic drugs; Z79.899 Other long term (current) drug therapy; Z88.0 Allergy status to penicillin; Z88.2 Allergy status to sulfonamides
CPT/HCPCS: J0360; J1100; J2001; J2405; J2704; J3010

== ENCOUNTER 2021-01-02 08:31 | Outpatient (CLI) | payer MEDICARE ==
[2021-01-02] MEDS ORDERED: Iopamidol-370 76% 500 ML 1 ML ONE (14:50)
== END 2021-01-02 08:32 | disposition home or self-care (01) ==
LOC: BICCT 08:31
PROVIDERS: ATTEND Internal Medicine Gastroenterology
DX: R16.2 Hepatomegaly with splenomegaly, not elsewhere classified (principal); D69.6 Thrombocytopenia, unspecified; N17.9 Acute kidney failure, unspecified; K76.0 Fatty (change of) liver, not elsewhere classified; J81.1 Chronic pulmonary edema
CPT/HCPCS: 74160; Q9967

== ENCOUNTER 2021-02-20 08:55 | Outpatient (CLI) | payer MEDICARE | END 2021-02-20 08:56 | disposition home or self-care (01) | LOC: BICMAMMO 08:55 | PROVIDERS: ATTEND Internal Medicine | DX: Z12.31 Encounter for screening mammogram for malignant neoplasm of breast (principal) | CPT/HCPCS: 77063; 77067 ==

== ENCOUNTER 2021-04-19 14:55 | Outpatient (CLI) | payer MEDICARE | END 2021-04-19 14:56 | disposition home or self-care (01) | LOC: ULT 14:55 | PROVIDERS: ATTEND Internal Medicine | DX: M79.671 Pain in right foot (principal) | CPT/HCPCS: 36415; 80048; 84550; 85025; 85379 ==

== ENCOUNTER 2021-06-20 13:45 | Outpatient (CLI) | payer MEDICARE | END 2021-06-20 13:46 | disposition home or self-care (01) | LOC: BICMAMMO 13:45 | PROVIDERS: ATTEND Internal Medicine | DX: Z13.820 Encounter for screening for osteoporosis (principal); M85.851 Other specified disorders of bone density and structure, right thigh; M85.852 Other specified disorders of bone density and structure, left thigh; Z78.0 Asymptomatic menopausal state | CPT/HCPCS: 77080 ==

== ENCOUNTER 2021-08-27 10:46 | Inpatient (IN) | payer MEDICARE ==
[2021-08-27 11:48] LABS: #Eosinphils 0.1 thou/uL (0.0-0.7); #Lymphocytes 0.4 thou/uL (1.20-3.40); #Monocytes 0.3 thou/uL (0.11-0.59); #Neutrophils 4.6 thou/uL (1.40-6.50); %Eosinophils 1.6 % (0.0-10.0); %Lymphocytes 7.8 % (21.0-51.0); %Neutrophils 84.6 % (42.0-75.0); Hemoglobin 13.1 g/dL (12.0-16.0); Mean Corpuscular HGB CONC 33.4 g/dL (32.0-36.0); Mean Corpuscular Hemoglobin 27.4 pg (27.0-31.0); Mean Platelet Volume 9.3 fL (7.4-10.4); Platelet Count 84 thou/uL (130-400); RBC Distribution Width 19.5 % (11.5-14.5); Red Blood Cell (RBC) Count 4.78 mill/uL (4.20-5.40); White Blood Cell (WBC) Count 5.4 thou/uL (4.8-10.8)
[2021-08-27 12:00] LABS: ALT (SGPT) 11 U/L (8-55); AST (SGOT) 16 U/L (5-34); Albumin 3.7 g/dL (3.4-4.8); Alkaline Phosphatase 77 U/L (40-110); Anion Gap 10 mmol/L (10-20); BUN (Urea Nitrogen) 27 mg/dL (9.8-20.1); Bilirubin, Total 0.5 mg/dL (0.2-1.2); Calc. Creatinine Clearance 0 mL/min (70-130); Calcium 9.3 mg/dL (7.8-10.44); Carbon Dioxide 31 mmol/L (23-31); Chloride 104 mmol/L (98-107); Globulin 2.6 g/dL (2.4-3.5); Glucose 126 mg/dL (83-110); Potassium 3.9 mmol/L (3.5-5.1); Protein, Total 6.3 g/dL (5.8-8.1); Sodium 141 mmol/L (136-145)
[2021-08-27] MEDS ORDERED: Lidocaine 1% (PF) 30 ML VIAL ONE (14:00)
[2021-08-27] MEDS ORDERED: Fentanyl 100 MCG/2 ML VIAL ONE ×2 (18:41→21:04)
[2021-08-27] MEDS ORDERED: Bupivacaine PF 0.5% 30 ML VIAL ONE (18:47)
[2021-08-27] MEDS ORDERED: Neomycin-Polymyxin 1 ML AMP ONE (18:47)
[2021-08-27] MEDS ORDERED: Bacitracin Zinc Ointment 30 gm TUBE ONE (18:47)
[2021-08-27 18:52] LABS: SARS-CoV-2 NAA Rapid Test Not Detected (NotDetected)
[2021-08-27] MEDS ORDERED: ePHEDrine 50 MG/ML VIAL ONE (19:15)
[2021-08-27] MEDS ORDERED: Dexamethasone 20 MG/5 ML VIAL ONE (19:15)
[2021-08-27] MEDS ORDERED: Succinylcholine 200 MG/10 ml SYRINGE FS ONE (19:15)
[2021-08-27] MEDS ORDERED: Ketorolac Tromethamine 30 MG/ML VIAL ONE (19:15)
[2021-08-27] MEDS ORDERED: Lidocaine 1% PF 5 ML VIAL ONE (19:15)
[2021-08-27] MEDS ORDERED: Ondansetron PF 4 MG/2 ML Vial ONE (19:15)
[2021-08-27] MEDS ORDERED: PROPOFOL 200 MG/20 ML VIAL ONE (19:15)
[2021-08-27] MEDS ORDERED: HYDROcodone/Acetaminophen 5/325 mg Tablet PO PRN (19:28)
[2021-08-27] MEDS ORDERED: Acetaminophen 325 MG TAB PO PRN (19:28)
[2021-08-27] MEDS ORDERED: Fentanyl 100 MCG/2 ML VIAL SLOW IVP PRN (19:28)
[2021-08-27] MEDS ORDERED: Morphine 4 MG/ML VIAL SLOW IVP PRN (19:28)
[2021-08-27] MEDS ORDERED: traMADol HCl 50 MG TAB PO PRN (19:28)
[2021-08-27] MEDS ORDERED: Meperidine HCl/PF 25 MG/ML VIAL IM PRN (19:30)
[2021-08-27] MEDS ORDERED: Communication Order-Pharmacy FS SCH (19:30)
[2021-08-27] MEDS ORDERED: TETANUS AND DIPHTHERIA TOX/PF 0.5 ML DISP.SYRIN IM SCH (19:30)
[2021-08-27 20:00] VITALS: BMI 39.8
[2021-08-27] MEDS ORDERED: Promethazine HCl 25 MG/ML VIAL IM PRN (20:40)
[2021-08-27] MEDS ORDERED: HYDROmorphone 2 MG/ML VIAL SLOW IVP PRN (20:40)
[2021-08-27] MEDS ORDERED: Promethazine HCl 25 MG/ML VIAL IVPB PRN (20:40)
[2021-08-27] MEDS ORDERED: Ondansetron HCl/PF 4 MG/2 ML Vial IVP PRN (20:40)
[2021-08-27] MEDS ORDERED: VANCOMYCIN 2 GRAM/400 ML BAG 2 GM in Premix Bag 1 BAG IVPB SCH ×2 (21:00→23:00)
[2021-08-27] MEDS: Sodium Chloride 0.9% 1,000 ML IV SCH (21:40)
[2021-08-27] MEDS: Aspirin 81 mg Enteric Coated Tablet PO SCH (22:21)
[2021-08-27] MEDS: Colchicine 0.6 MG TAB PO SCH (22:21)
[2021-08-27] MEDS: Clindamycin/D5W 600 MG in Premix Bag 1 BAG IVPB SCH (22:22)
[2021-08-27] MEDS: Gentamicin Sulfate 80 MG in Premix Bag 1 BAG IVPB SCH (22:28)
[2021-08-28] MEDS: Clindamycin/D5W 600 MG in Premix Bag 1 BAG IVPB SCH ×2 (05:59→15:02)
[2021-08-28] MEDS: Sodium Chloride 0.9% 1,000 ML IV SCH ×3 (05:59→22:08)
[2021-08-28] MEDS: Gentamicin Sulfate 80 MG in Premix Bag 1 BAG IVPB SCH ×2 (05:59→15:48)
[2021-08-28] MEDS ORDERED: Dextrose 5% in Water 1,000 ML IV PRN (07:19)
[2021-08-28] MEDS ORDERED: Dextrose 50% Abboject 50 ML SYRINGE SLOW IVP PRN (07:19)
[2021-08-28] MEDS ORDERED: HumaLOG 300 UNITS/3 ML VIAL SC PRN (07:19)
[2021-08-28] MEDS: metFORMIN 500 MG TAB PO SCH ×2 (10:08→17:16)
[2021-08-28] MEDS: Colchicine 0.6 MG TAB PO SCH ×2 (10:08→21:05)
[2021-08-28] MEDS: Metoprolol Tartrate 50 MG TAB PO SCH ×2 (10:08→21:05)
[2021-08-28] MEDS: Aspirin 81 mg Enteric Coated Tablet PO SCH ×2 (10:08→21:05)
[2021-08-28] MEDS ORDERED: Vancomycin 1.5 GRAM/300 ML BAG 1.5 GM in Premix Bag 1 BAG IVPB SCH (23:00)
[2021-08-29] MEDS: metFORMIN 500 MG TAB PO SCH ×2 (08:02→16:15)
[2021-08-29] MEDS: Aspirin 81 mg Enteric Coated Tablet PO SCH (08:02)
[2021-08-29] MEDS: Colchicine 0.6 MG TAB PO SCH (08:02)
[2021-08-29] MEDS: Metoprolol Tartrate 50 MG TAB PO SCH (08:02)
[2021-08-29] MEDS ORDERED: methylPREDNISolone Sod Succ 40 MG VIAL IVP SCH (09:00)
[2021-08-29] MEDS: Sodium Chloride 0.9% 1,000 ML IV SCH (10:58)
[2021-08-29 16:01] VITALS: BP 157/83; TEMP 98.3
[2021-08-29] MEDS ORDERED: Enoxaparin Sodium 40 MG/0.4 ML SYRINGE SC SCH (21:00)
[2021-08-30 15:15] LABS: Fungus Stain Final report (.)
[2021-08-30 15:15] LABS: Fungus Stain Final report (.)
[2021-08-30 15:15] LABS: Fungus Stain Final report (.)
[2021-08-30 15:15] LABS: Fungus Stain Final report (.)
== END 2021-08-29 18:10 | disposition home or self-care (01) | DRG 506 ==
LOC: ERS 10:46 → SDC 18:35 → SURG A 19:28
PROVIDERS: ADMIT Orthopaedic Surgery Hand Surgery; ATTEND Internal Medicine
PROC: 0R9W0ZZ Drainage of Right Finger Phalangeal Joint, Open Approach (ICD-10-PCS; principal; 2021-08-27)
PROC: 0RBW0ZZ Excision of Right Finger Phalangeal Joint, Open Approach (ICD-10-PCS; 2021-08-27)
PROC: 0LB70ZZ Excision of Right Hand Tendon, Open Approach (ICD-10-PCS; 2021-08-27)
DX: M1A.9XX0 Chronic gout, unspecified, without tophus (tophi) (principal); L02.511 Cutaneous abscess of right hand; Z20.822 Contact with and (suspected) exposure to COVID-19; E78.5 Hyperlipidemia, unspecified; E66.9 Obesity, unspecified; D69.6 Thrombocytopenia, unspecified; M1A.09X0 Idiopathic chronic gout, multiple sites, without tophus (tophi); E11.9 Type 2 diabetes mellitus without complications; I11.0 Hypertensive heart disease with heart failure; G47.30 Sleep apnea, unspecified; I50.9 Heart failure, unspecified; F41.9 Anxiety disorder, unspecified; F32.A Depression, unspecified; Z88.1 Allergy status to other antibiotic agents; Z88.0 Allergy status to penicillin; Z88.2 Allergy status to sulfonamides; Z88.8 Allergy status to other drugs, medicaments and biological substances; Z68.39 Body mass index [BMI] 39.0-39.9, adult; Z79.82 Long term (current) use of aspirin; Z79.899 Other long term (current) drug therapy; Z90.49 Acquired absence of other specified parts of digestive tract
CPT/HCPCS: 36415; 36416; 80053; 83605; 84550; 85025; 85652; 86140; 87070; 87081; 87102; 87116; 87205; 87206; 88304; 89060; J1100; J1580; J1885; J2001; J2405; J2704; J2920; J3010; J3370; J3490; J7050; S0020; U0002

== ENCOUNTER 2022-02-24 09:44 | Outpatient (CLI) | payer MEDICARE | END 2022-02-24 09:45 | disposition home or self-care (01) | LOC: BICMAMMO 09:44 | PROVIDERS: ATTEND Internal Medicine | DX: Z12.31 Encounter for screening mammogram for malignant neoplasm of breast (principal) | CPT/HCPCS: 77063; 77067 ==

== ENCOUNTER 2022-08-05 08:04 | Day surgery (SDC) | payer MEDICARE ==
[2022-08-04 10:50] VITALS: BMI 43.4
[2022-08-05 09:33] LABS: #Eosinphils 0.1 thou/uL (0.0-0.7); #Lymphocytes 0.6 thou/uL (1.20-3.40); #Monocytes 0.4 thou/uL (0.11-0.59); %Eosinophils 1.9 % (0.0-10.0); %Monocytes 7.3 % (0.0-10.0); %Neutrophils 78.8 % (42.0-75.0); Hemoglobin 13.9 g/dL (12.0-16.0); Mean Corpuscular HGB CONC 32.6 g/dL (32.0-36.0); Mean Corpuscular Hemoglobin 27.5 pg (27.0-31.0); Mean Corpuscular Volume 84.5 fl (78.0-98.0); Mean Platelet Volume 9.7 fL (7.4-10.4); Platelet Count 107 10x3/uL (130-400); RBC Distribution Width 15.6 % (11.5-14.5); Red Blood Cell (RBC) Count 5.05 mill/uL (4.20-5.40); White Blood Cell (WBC) Count 5.1 10x3/uL (4.8-10.8)
[2022-08-05 09:47] LABS: Anion Gap 13 mmol/L (10-20); BUN (Urea Nitrogen) 18 mg/dL (9.8-20.1); Calc. Creatinine Clearance 81 mL/min (70-130); Calcium 8.9 mg/dL (7.8-10.44); Carbon Dioxide 28 mmol/L (23-31); Chloride 103 mmol/L (98-107); Estimated GFR 58; Glucose 124 mg/dL (83-110); Potassium 4.3 mmol/L (3.5-5.1); Sodium 140 mmol/L (136-145)
[2022-08-05] MEDS ORDERED: PROPOFOL 200 MG/20 ML VIAL ONE (11:34)
== END 2022-08-05 12:27 | disposition home or self-care (01) ==
LOC: SDC 08:04
PROVIDERS: ATTEND Internal Medicine Gastroenterology
PROC: 0DBN8ZX Excision of Sigmoid Colon, Via Natural or Artificial Opening Endoscopic, Diagnostic (ICD-10-PCS; principal; 2022-08-05)
PROC: 0DBL8ZX Excision of Transverse Colon, Via Natural or Artificial Opening Endoscopic, Diagnostic (ICD-10-PCS; 2022-08-05)
DX: Z12.11 Encounter for screening for malignant neoplasm of colon (principal); D12.3 Benign neoplasm of transverse colon; K57.30 Diverticulosis of large intestine without perforation or abscess without bleeding; K64.8 Other hemorrhoids; K64.4 Residual hemorrhoidal skin tags; E11.9 Type 2 diabetes mellitus without complications; G47.33 Obstructive sleep apnea (adult) (pediatric); I50.9 Heart failure, unspecified; K76.0 Fatty (change of) liver, not elsewhere classified; Z86.010 Personal history of colon polyps; Z79.82 Long term (current) use of aspirin; Z79.83 Long term (current) use of bisphosphonates; Z79.84 Long term (current) use of oral hypoglycemic drugs; Z79.85 Long-term (current) use of injectable non-insulin antidiabetic drugs; Z79.899 Other long term (current) drug therapy; Z88.0 Allergy status to penicillin; Z88.2 Allergy status to sulfonamides; Z88.8 Allergy status to other drugs, medicaments and biological substances
CPT/HCPCS: 80048; 85025; 88305; 93005; 93010; J2704

== ENCOUNTER 2022-12-09 07:38 | Outpatient (CLI) | payer MEDICARE | END 2022-12-09 07:39 | disposition home or self-care (01) | LOC: TBSIIMAG 07:38 | PROVIDERS: ATTEND Internal Medicine | DX: M54.14 Radiculopathy, thoracic region (principal); M54.16 Radiculopathy, lumbar region; M51.34 Other intervertebral disc degeneration, thoracic region | CPT/HCPCS: 72146; 72148 ==

== ENCOUNTER → 2022-12-09 | Emergency (ER) | payer MEDICARE ==
[~2022-12-09] MED LIST: HYDROcodone/Acetaminophen 10/325 mg Tablet ONE; HYDROmorphone 0.5 MG/0.5 ML SYRINGE ONE; Iopamidol-370 76% 500 ML MDV (1 ML CHARGE) ONE
[2022-12-09 19:34] LABS: Bilirubin Negative (Negative); Blood, Urine Negative (Negative); Clarity Clear (Clear); Glucose, Urine (Dipstick) Normal (Negative); Ketone, Urine Negative (Negative); Leukocyte Negative Leu/uL (Negative); Nitrite Negative (Negative); Protein, Urine (Dipstick) 20 mg/dL (Neg-Trace); Specific Gravity, Urine 1.011 (1.002-1.036); Urobilinogen Normal mg/dL (Less than 2)
== END ==
LOC: ERS 18:17
DX: M54.42 Lumbago with sciatica, left side (principal); E11.9 Type 2 diabetes mellitus without complications; I11.0 Hypertensive heart disease with heart failure; I50.9 Heart failure, unspecified; E66.9 Obesity, unspecified; K21.9 Gastro-esophageal reflux disease without esophagitis; Z79.84 Long term (current) use of oral hypoglycemic drugs; Z79.899 Other long term (current) drug therapy
CPT/HCPCS: 72146; 72148; 74177; 81003; J1170

== ENCOUNTER 2022-12-10 21:14 | Inpatient (IN) | payer MEDICARE ==
[2022-12-10 22:22] VITALS: BMI 39.8
[2022-12-10] MEDS ORDERED: Ondansetron PF 4 MG/2 ML Vial IVP PRN (22:45)
[2022-12-10] MEDS ORDERED: Ondansetron ODT 4 MG TAB SL PRN (22:45)
[2022-12-10] MEDS ORDERED: Acetaminophen 325 MG TAB PO PRN (22:45)
[2022-12-10] MEDS: Sodium Chloride 0.9% 1,000 ML IV SCH (23:31)
[2022-12-10] MEDS: HYDROcodone/Acetaminophen 5/325 mg Tablet PO PRN (23:55)
[2022-12-11] MEDS ORDERED: Dextrose 50% Abboject 50 ML SYRINGE SLOW IVP PRN (07:57)
[2022-12-11] MEDS ORDERED: Dextrose 5% in Water 1,000 ML IV PRN (07:57)
[2022-12-11] MEDS: Metoprolol Tartrate 50 MG TAB PO SCH ×2 (08:18→19:54)
[2022-12-11] MEDS: hydrALAZINE 25 MG TAB PO SCH ×2 (08:18→19:54)
[2022-12-11] MEDS: Allopurinol 100 MG TAB PO SCH ×2 (08:18→19:55)
[2022-12-11] MEDS: Aspirin 81 mg Enteric Coated Tablet PO SCH (08:19)
[2022-12-11] MEDS: Sertraline 100 MG TAB PO SCH (08:19)
[2022-12-11] MEDS: Cyclobenzaprine 10 MG TAB PO PRN ×2 (08:33→17:04)
[2022-12-11] MEDS: metFORMIN 500 MG TAB PO SCH (15:42)
[2022-12-11] MEDS: HYDROcodone/Acetaminophen 5/325 mg Tablet PO PRN ×2 (16:07→19:55)
[2022-12-11] MEDS: Sodium Chloride 0.9% 1,000 ML IV SCH (17:48)
[2022-12-11] MEDS: Gabapentin 300 MG CAP PO SCH (19:55)
[2022-12-12] MEDS: Cyclobenzaprine 10 MG TAB PO PRN ×2 (02:25→17:11)
[2022-12-12] MEDS: metFORMIN 500 MG TAB PO SCH ×2 (06:00→16:06)
[2022-12-12] MEDS: HYDROcodone/Acetaminophen 5/325 mg Tablet PO PRN ×2 (06:00→20:50)
[2022-12-12 06:13] LABS: #Eosinphils 0.2 thou/uL (0.0-0.7); #Lymphocytes 0.5 thou/uL (1.20-3.40); #Monocytes 0.5 thou/uL (0.11-0.59); #Neutrophils 5.4 thou/uL (1.40-6.50); %Basophils 0.3 % (0.0-1.0); %Eosinophils 3.7 % (0.0-10.0); %Lymphocytes 7.4 % (21.0-51.0); %Monocytes 6.9 % (0.0-10.0); %Neutrophils 81.7 % (42.0-75.0); Hemoglobin 13.5 g/dL (12.0-16.0); Mean Corpuscular HGB CONC 33.8 g/dL (32.0-36.0); Mean Corpuscular Hemoglobin 28.7 pg (27.0-31.0); Mean Platelet Volume 8.7 fL (7.4-10.4); Platelet Count 91 10x3/uL (130-400); Red Blood Cell (RBC) Count 4.71 mill/uL (4.20-5.40); White Blood Cell (WBC) Count 6.7 10x3/uL (4.8-10.8)
[2022-12-12 06:30] LABS: Anion Gap 16 mmol/L (10-20); BUN (Urea Nitrogen) 18 mg/dL (9.8-20.1); Calc. Creatinine Clearance 98 mL/min (70-130); Calcium 8.7 mg/dL (7.8-10.44); Carbon Dioxide 22 mmol/L (23-31); Chloride 99 mmol/L (98-107); Estimated GFR 77; Glucose 138 mg/dL (83-110); Potassium 3.6 mmol/L (3.5-5.1); Sodium 133 mmol/L (136-145)
[2022-12-12] MEDS: Gabapentin 300 MG CAP PO SCH ×3 (08:28→20:49)
[2022-12-12] MEDS: Metoprolol Tartrate 50 MG TAB PO SCH ×2 (08:29→20:50)
[2022-12-12] MEDS: hydrALAZINE 25 MG TAB PO SCH ×2 (08:29→20:49)
[2022-12-12] MEDS: Allopurinol 100 MG TAB PO SCH ×2 (08:29→20:50)
[2022-12-12] MEDS: Aspirin 81 mg Enteric Coated Tablet PO SCH (08:29)
[2022-12-12] MEDS: Sertraline 100 MG TAB PO SCH (08:29)
[2022-12-12] MEDS: Sodium Chloride 0.9% 1,000 ML IV SCH (16:07)
[2022-12-13] MEDS: HYDROcodone/Acetaminophen 5/325 mg Tablet PO PRN ×2 (02:46→08:40)
[2022-12-13] MEDS: metFORMIN 500 MG TAB PO SCH ×2 (06:23→15:45)
[2022-12-13 07:14] LABS: #Eosinphils 0.3 thou/uL (0.0-0.7); #Lymphocytes 0.6 thou/uL (1.20-3.40); #Monocytes 0.5 thou/uL (0.11-0.59); #Neutrophils 6.4 thou/uL (1.40-6.50); %Basophils 0.3 % (0.0-1.0); %Eosinophils 4.1 % (0.0-10.0); %Lymphocytes 7.4 % (21.0-51.0); %Monocytes 6.5 % (0.0-10.0); %Neutrophils 81.8 % (42.0-75.0); Hemoglobin 14.5 g/dL (12.0-16.0); Mean Corpuscular HGB CONC 33.6 g/dL (32.0-36.0); Mean Corpuscular Hemoglobin 28.7 pg (27.0-31.0); Mean Corpuscular Volume 85.3 fl (78.0-98.0); Mean Platelet Volume 8.6 fL (7.4-10.4); Platelet Count 105 10x3/uL (130-400); RBC Distribution Width 14.9 % (11.5-14.5); Red Blood Cell (RBC) Count 5.07 mill/uL (4.20-5.40); White Blood Cell (WBC) Count 7.8 10x3/uL (4.8-10.8)
[2022-12-13 07:23] LABS: Anion Gap 14 mmol/L (10-20); BUN (Urea Nitrogen) 17 mg/dL (9.8-20.1); Calc. Creatinine Clearance 96 mL/min (70-130); Calcium 8.8 mg/dL (7.8-10.44); Carbon Dioxide 24 mmol/L (23-31); Chloride 98 mmol/L (98-107); Estimated GFR 75; Glucose 130 mg/dL (83-110); Potassium 3.7 mmol/L (3.5-5.1); Sodium 132 mmol/L (136-145)
[2022-12-13] MEDS: Sertraline 100 MG TAB PO SCH (08:34)
[2022-12-13] MEDS: hydrALAZINE 25 MG TAB PO SCH ×2 (08:34→20:16)
[2022-12-13] MEDS: Metoprolol Tartrate 50 MG TAB PO SCH ×2 (08:34→20:16)
[2022-12-13] MEDS: Aspirin 81 mg Enteric Coated Tablet PO SCH (08:35)
[2022-12-13] MEDS: Allopurinol 100 MG TAB PO SCH ×2 (08:35→20:16)
[2022-12-13] MEDS: Gabapentin 300 MG CAP PO SCH ×3 (08:35→20:16)
[2022-12-13] MEDS ORDERED: Temazepam 15 MG CAP PO PRN (09:22)
[2022-12-13] MEDS: Cyclobenzaprine 10 MG TAB PO SCH ×2 (15:45→20:16)
[2022-12-13] MEDS: HumaLOG 300 UNITS/3 ML VIAL SC PRN (18:11)
[2022-12-13] MEDS: Ibuprofen 200 MG TAB PO SCH (20:15)
[2022-12-14] MEDS: metFORMIN 500 MG TAB PO SCH ×2 (06:48→15:42)
[2022-12-14] MEDS: hydrALAZINE 25 MG TAB PO SCH ×2 (08:30→20:42)
[2022-12-14] MEDS: Gabapentin 300 MG CAP PO SCH ×3 (08:30→20:42)
[2022-12-14] MEDS: Ibuprofen 200 MG TAB PO SCH ×2 (08:31→20:42)
[2022-12-14] MEDS: Sertraline 100 MG TAB PO SCH (08:31)
[2022-12-14] MEDS: Aspirin 81 mg Enteric Coated Tablet PO SCH (08:31)
[2022-12-14] MEDS: Cyclobenzaprine 10 MG TAB PO SCH ×3 (08:31→20:47)
[2022-12-14] MEDS: Metoprolol Tartrate 50 MG TAB PO SCH ×2 (08:31→20:48)
[2022-12-14] MEDS: Allopurinol 100 MG TAB PO SCH ×2 (08:31→20:48)
[2022-12-14] MEDS: Polyethylene Glycol 3350 17 GM Packet PO SCH (08:34)
[2022-12-15] MEDS: HYDROcodone/Acetaminophen 5/325 mg Tablet PO PRN ×4 (06:10→20:24)
[2022-12-15] MEDS: metFORMIN 500 MG TAB PO SCH ×2 (06:10→16:30)
[2022-12-15] MEDS: hydrALAZINE 25 MG TAB PO SCH ×2 (08:51→20:24)
[2022-12-15] MEDS: Gabapentin 300 MG CAP PO SCH ×3 (08:51→20:24)
[2022-12-15] MEDS: Sertraline 100 MG TAB PO SCH (08:52)
[2022-12-15] MEDS: Metoprolol Tartrate 50 MG TAB PO SCH ×2 (08:52→20:25)
[2022-12-15] MEDS: Aspirin 81 mg Enteric Coated Tablet PO SCH (08:52)
[2022-12-15] MEDS: Allopurinol 100 MG TAB PO SCH ×2 (08:52→20:25)
[2022-12-15] MEDS: Cyclobenzaprine 10 MG TAB PO SCH ×3 (08:52→20:24)
[2022-12-15] MEDS: Ibuprofen 200 MG TAB PO SCH ×2 (08:52→20:25)
[2022-12-15] MEDS: Polyethylene Glycol 3350 17 GM Packet PO SCH (08:53)
[2022-12-15] MEDS: Senokot S 8.6-50 MG TAB PO SCH (20:24)
[2022-12-16] MEDS: metFORMIN 500 MG TAB PO SCH ×2 (06:30→16:55)
[2022-12-16] MEDS: Gabapentin 300 MG CAP PO SCH ×3 (08:28→20:42)
[2022-12-16] MEDS: Allopurinol 100 MG TAB PO SCH ×2 (08:28→20:42)
[2022-12-16] MEDS: Metoprolol Tartrate 50 MG TAB PO SCH ×2 (08:28→20:44)
[2022-12-16] MEDS: Ibuprofen 200 MG TAB PO SCH ×2 (08:29→20:43)
[2022-12-16] MEDS: Sertraline 100 MG TAB PO SCH (08:29)
[2022-12-16] MEDS: hydrALAZINE 25 MG TAB PO SCH ×2 (08:29→20:42)
[2022-12-16] MEDS: Aspirin 81 mg Enteric Coated Tablet PO SCH (08:29)
[2022-12-16] MEDS: Cyclobenzaprine 10 MG TAB PO SCH ×3 (08:30→20:44)
[2022-12-16] MEDS: Senokot S 8.6-50 MG TAB PO SCH ×2 (09:02→20:43)
[2022-12-16] MEDS: Polyethylene Glycol 3350 17 GM Packet PO SCH (09:02)
[2022-12-16] MEDS: HYDROcodone/Acetaminophen 5/325 mg Tablet PO PRN (14:22)
[2022-12-17] MEDS: HYDROcodone/Acetaminophen 5/325 mg Tablet PO PRN ×2 (04:22→10:56)
[2022-12-17] MEDS: metFORMIN 500 MG TAB PO SCH ×2 (06:33→15:38)
[2022-12-17] MEDS: Ibuprofen 200 MG TAB PO SCH ×2 (08:36→21:00)
[2022-12-17] MEDS: Gabapentin 300 MG CAP PO SCH ×3 (08:38→20:58)
[2022-12-17] MEDS: Allopurinol 100 MG TAB PO SCH ×2 (08:38→21:00)
[2022-12-17] MEDS: Sertraline 100 MG TAB PO SCH (08:38)
[2022-12-17] MEDS: hydrALAZINE 25 MG TAB PO SCH ×2 (08:38→20:58)
[2022-12-17] MEDS: Metoprolol Tartrate 50 MG TAB PO SCH ×2 (08:38→20:59)
[2022-12-17] MEDS: Senokot S 8.6-50 MG TAB PO SCH ×2 (08:39→20:59)
[2022-12-17] MEDS: Polyethylene Glycol 3350 17 GM Packet PO SCH (08:39)
[2022-12-17] MEDS: Cyclobenzaprine 10 MG TAB PO SCH ×3 (08:39→21:00)
[2022-12-17] MEDS: Aspirin 81 mg Enteric Coated Tablet PO SCH (08:39)
[2022-12-17] MEDS ORDERED: Acetaminophen 325 MG TAB PO PRN (11:54)
[2022-12-18] MEDS: metFORMIN 500 MG TAB PO SCH ×2 (06:29→15:36)
[2022-12-18] MEDS: hydrALAZINE 25 MG TAB PO SCH (09:53)
[2022-12-18] MEDS: Polyethylene Glycol 3350 17 GM Packet PO SCH (09:53)
[2022-12-18] MEDS: Aspirin 81 mg Enteric Coated Tablet PO SCH (09:54)
[2022-12-18] MEDS: Metoprolol Tartrate 50 MG TAB PO SCH (09:54)
[2022-12-18] MEDS: Ibuprofen 200 MG TAB PO SCH (09:54)
[2022-12-18] MEDS: Sertraline 100 MG TAB PO SCH (09:54)
[2022-12-18] MEDS: HYDROcodone/Acetaminophen 5/325 mg Tablet PO PRN (09:54)
[2022-12-18] MEDS: Senokot S 8.6-50 MG TAB PO SCH (09:54)
[2022-12-18] MEDS: Cyclobenzaprine 10 MG TAB PO SCH ×2 (09:54→15:36)
[2022-12-18] MEDS: Gabapentin 300 MG CAP PO SCH ×2 (09:54→15:36)
[2022-12-18] MEDS: Allopurinol 100 MG TAB PO SCH (09:55)
[2022-12-18] MEDS: HumaLOG 300 UNITS/3 ML VIAL SC PRN (12:40)
[2022-12-18 17:07] VITALS: BP 157/74; TEMP 97.9
== END 2022-12-18 17:05 | DRG 563 ==
LOC: SURG A 22:12
PROVIDERS: ADMIT Internal Medicine; ATTEND Internal Medicine
DX: S82.441A Displaced spiral fracture of shaft of right fibula, initial encounter for closed fracture (principal); N17.9 Acute kidney failure, unspecified; I13.0 Hypertensive heart and chronic kidney disease with heart failure and stage 1 through stage 4 chronic kidney disease, or unspecified chronic kidney disease; I50.32 Chronic diastolic (congestive) heart failure; M1A.09X0 Idiopathic chronic gout, multiple sites, without tophus (tophi); N18.9 Chronic kidney disease, unspecified; E11.22 Type 2 diabetes mellitus with diabetic chronic kidney disease; M51.34 Other intervertebral disc degeneration, thoracic region; W18.30XA Fall on same level, unspecified, initial encounter; S82.841A Displaced bimalleolar fracture of right lower leg, initial encounter for closed fracture; Z88.1 Allergy status to other antibiotic agents; Z88.0 Allergy status to penicillin; Z88.2 Allergy status to sulfonamides; Z88.8 Allergy status to other drugs, medicaments and biological substances; Z79.899 Other long term (current) drug therapy; Z79.84 Long term (current) use of oral hypoglycemic drugs; Z79.82 Long term (current) use of aspirin; M54.42 Lumbago with sciatica, left side; E66.9 Obesity, unspecified; K21.9 Gastro-esophageal reflux disease without esophagitis
CPT/HCPCS: 36415; 36416; 72146; 72148; 72170; 74177; 80048; 81003; 85025; 96374; J1170; J1815; J7050; Q9967

== ENCOUNTER 2024-11-03 10:28 | Outpatient (CLI) | payer OTHER | END 2024-11-03 10:29 | disposition home or self-care (01) | LOC: BICMAMMO 10:28 | PROVIDERS: ATTEND Internal Medicine | DX: Z12.31 Encounter for screening mammogram for malignant neoplasm of breast (principal) | CPT/HCPCS: 77063; 77067 ==

== ENCOUNTER 2025-05-09 13:36 | Outpatient (CLI) | payer OTHER | END 2025-05-09 13:37 | disposition home or self-care (01) | LOC: BICMAMMO 13:36 | PROVIDERS: ATTEND Internal Medicine | DX: Z78.0 Asymptomatic menopausal state (principal); M85.851 Other specified disorders of bone density and structure, right thigh; M85.852 Other specified disorders of bone density and structure, left thigh | CPT/HCPCS: 77080 ==

== ENCOUNTER 2025-07-03 09:25 | Day surgery (SDC) | payer OTHER ==
[2025-06-30 13:14] VITALS: BMI 44.2
[2025-07-03] MEDS ORDERED: GLYCOPYRROLATE/PF 0.2 MG/ML VIAL ONE (12:01)
== END 2025-07-03 13:09 | disposition home or self-care (01) ==
LOC: SDC 09:25
PROVIDERS: ATTEND Internal Medicine Gastroenterology
PROC: 0DJ08ZZ Inspection of Upper Intestinal Tract, Via Natural or Artificial Opening Endoscopic (ICD-10-PCS; principal; 2025-07-03)
DX: K76.0 Fatty (change of) liver, not elsewhere classified (principal); K44.9 Diaphragmatic hernia without obstruction or gangrene; I13.0 Hypertensive heart and chronic kidney disease with heart failure and stage 1 through stage 4 chronic kidney disease, or unspecified chronic kidney disease; E11.22 Type 2 diabetes mellitus with diabetic chronic kidney disease; N18.9 Chronic kidney disease, unspecified; I50.9 Heart failure, unspecified; D69.6 Thrombocytopenia, unspecified; G61.81 Chronic inflammatory demyelinating polyneuritis; M10.9 Gout, unspecified; I48.91 Unspecified atrial fibrillation; Z88.0 Allergy status to penicillin; Z88.2 Allergy status to sulfonamides; Z88.9 Allergy status to unspecified drugs, medicaments and biological substances; Z90.49 Acquired absence of other specified parts of digestive tract; Z79.84 Long term (current) use of oral hypoglycemic drugs; Z79.899 Other long term (current) drug therapy
CPT/HCPCS: 43235; J3490